=== PATIENT | female | born 1945 | race Caucasian/White ===

== ENCOUNTER 2017-02-07 14:14 | Emergency (ER) | payer MEDICARE, OTHER ==
--- NOTE | 2017-02-11 08:25 | ER ---
ADMIT: 02/07/2017 RM/LOC: ER [facility] MR#: [id number] [address] [id number] [address] [place] [address] Emergency Room Report SEX: F AGE: 71 : 1945 DATE: 02/07/2017 BRIEF ADDENDUM: Please see my T-sheet for complete review of systems, past medical history, and physical exam. CHIEF COMPLAINT: Injury to left foot. HISTORY OF PRESENT ILLNESS: Pleasant 71-year-old white female, who presents to the ER after sustaining an injury at home. States she was working in the garden in a pair of flip-flops when she caught her left foot on a piece of celia metal in her garden. She initially had a small amount of bleeding, went to examine her foot after she got back inside and noted she had a large gaping cut on the bottom of her foot. Denies any tingling or numbness distally. She does have some pain with movement. No other concerns today. COURSE IN THE EMERGENCY ROOM: The patient seen and examined. She is alert and oriented. She is in no acute distress. She does have a 2 cm laceration on the bottom of her left foot kind of near the 1st MCP joint. She does have some tenderness and swelling about this, however, she has full range of motion at the 1st MCP. Neurovascularly she is intact distally. I did update her tetanus today. PROCEDURE NOTE: Laceration repair. This is a 2 cm irregular linear laceration on the bottom of the left foot. Initially cleaned with UltraDEX. Anesthetized using 5 mL of lidocaine in a field block fashion. After anesthesia was achieved, it was thoroughly explored and irrigated with saline. Wound edges were then approximated using four 4-0 Prolene sutures. Wound edges were well everted. It was dressed. IMPRESSION: Left foot laceration. DISPOSITION: Patient was instructed to follow up with Dr. Aly in 7-10 days to have sutures removed. She can use Tylenol, ibuprofen for pain. Apply ice as needed. Monitor for any signs symptoms of infection. Follow up sooner if needed. Questions sought and answered to best of my ability and patient's satisfaction. Discharged in stable condition. DEANNA Marvin / Hernandez Rider MD / milena JOB #: [id number] CC: Hernandez Rider MD, Attending Physician
== END 2017-02-07 14:55 | disposition home or self-care (01) ==
LOC: ER 14:14
PROC: 0HQNXZZ Repair Left Foot Skin, External Approach (ICD-10-PCS; principal; 2017-02-07)
DX: S91.312A Laceration without foreign body, left foot, initial encounter (principal); E11.9 Type 2 diabetes mellitus without complications; I10 Essential (primary) hypertension; Z79.84 Long term (current) use of oral hypoglycemic drugs; Z23 Encounter for immunization; Z79.899 Other long term (current) drug therapy; W26.8XXA Contact with other sharp object(s), not elsewhere classified, initial encounter; Y92.007 Garden or yard of unspecified non-institutional (private) residence as the place of occurrence of the external cause

== ENCOUNTER → 2017-03-01 | Outpatient (CLI) | payer MEDICARE, OTHER | END | disposition home or self-care (01) | LOC: RAD.S 13:01 | DX: R41.3 Other amnesia (principal); I63.8 Other cerebral infarction; G93.89 Other specified disorders of brain ==